=== PATIENT | male | born 1965 | race Two or more races ===

== ENCOUNTER → 2017-07-29 | Outpatient (CLI) | payer OTHER ==
[~2017-07-29] MED LIST: ACID CONTROLLER20 MG PO; ADVIL100 M1; ASA81 MG; COUMADIN2.5 MG PO; COZAAR50 MG; DICLOFENAC SODI50 MG PO; FIORICET TABLET1 TAB PO; HYZAAR 100-121 UDTAB; IBUPROFEN800 MG PO; LEVSIN/SL0.125 MG SL; LOSARTAN POTASS50 MG; ORPH100T PO; PAXIL20 MG PO; PROVENTIL3 ML/2.5 M IH; RESTORIL30 MG; SIMVASTATIN5 MG PO; TENORMIN25 MG PO; XANAX XR1 MG; ZITHROMAX500 MG PO; ZOFRAN8 MG PO; ZYNCOF 20-400120 ML PO
== END | disposition home or self-care (01) ==
LOC: PPHC 08:36
DX: S00.83XD Contusion of other part of head, subsequent encounter (principal); X58.XXXD Exposure to other specified factors, subsequent encounter

== ENCOUNTER → 2017-08-03 | Emergency (ER) | payer OTHER ==
[~2017-08-03] VITALS: Ht 167.6 cm; Wt 99.8 kg
== END | disposition home or self-care (01) ==
LOC: ER 07:20
DX: Z48.02 Encounter for removal of sutures (principal)

== ENCOUNTER 2017-11-22 09:43 | Outpatient (CLI) | payer OTHER | END 2017-11-22 09:44 | disposition home or self-care (01) | LOC: LAB 09:43 | DX: Z83.3 Family history of diabetes mellitus (principal); E78.2 Mixed hyperlipidemia; E78.00 Pure hypercholesterolemia, unspecified; R74.0 Nonspecific elevation of levels of transaminase and lactic acid dehydrogenase [LDH]; D50.8 Other iron deficiency anemias; N39.0 Urinary tract infection, site not specified; Z83.49 Family history of other endocrine, nutritional and metabolic diseases; E55.9 Vitamin D deficiency, unspecified; N40.1 Benign prostatic hyperplasia with lower urinary tract symptoms ==

== ENCOUNTER 2017-11-22 10:25 | Outpatient (CLI) | payer OTHER | END 2017-11-22 10:31 | disposition home or self-care (01) | LOC: RAD 10:25 | DX: M25.522 Pain in left elbow (principal) ==

== ENCOUNTER 2017-12-17 11:47 | Outpatient (CLI) | payer OTHER | END 2017-12-17 16:31 | disposition home or self-care (01) | LOC: TOM 11:47 | DX: M25.551 Pain in right hip (principal); M25.552 Pain in left hip ==

== ENCOUNTER 2018-02-24 22:58 | Emergency (ER) | payer OTHER ==
[~2018-02-24] VITALS: Ht 167.6 cm; Wt 99.8 kg
== END 2018-02-25 01:41 | disposition left against medical advice (07) ==
LOC: ER 22:58
DX: Z53.20 Procedure and treatment not carried out because of patient's decision for unspecified reasons (principal)

== ENCOUNTER 2018-04-20 11:04 | Emergency (ER) | payer OTHER ==
[~2018-04-20] VITALS: Ht 167.6 cm; Wt 99.8 kg
== END 2018-04-20 14:52 | disposition home or self-care (01) ==
LOC: ER 11:04
DX: M12.512 Traumatic arthropathy, left shoulder (principal)

== ENCOUNTER 2018-10-28 18:48 | Emergency (ER) | payer OTHER ==
[~2018-10-28] VITALS: Ht 167.6 cm; Wt 95.3 kg
== END 2018-10-28 22:27 | disposition home or self-care (01) ==
LOC: ER 18:48
DX: M62.830 Muscle spasm of back (principal)

== ENCOUNTER 2018-10-30 10:51 | Outpatient (CLI) | payer OTHER | END 2018-10-30 17:10 | disposition home or self-care (01) | LOC: LAB 10:51 | DX: I10 Essential (primary) hypertension (principal); Z00.00 Encounter for general adult medical examination without abnormal findings; E55.9 Vitamin D deficiency, unspecified; E11.9 Type 2 diabetes mellitus without complications; N42.89 Other specified disorders of prostate ==

== ENCOUNTER 2019-03-02 20:35 | Emergency (ER) | payer OTHER ==
[~2019-03-02] VITALS: Ht 167.6 cm; Wt 99.8 kg
[2019-03-02] MEDS ORDERED: NORFLEX100MG PO (22:52)
[2019-03-02] MEDS ORDERED: NAPROXEN500 MG PO (22:52)
== END 2019-03-02 22:58 | disposition home or self-care (01) ==
LOC: ER 20:35
DX: M54.5 Low back pain (principal)

== ENCOUNTER 2019-04-10 17:59 | Emergency (ER) | payer OTHER ==
[~2019-04-10] VITALS: Ht 167.6 cm; Wt 101.6 kg
[~2019-04-10 17:59] MED LIST changes: +NAPROXEN500 MG PO; +NORFLEX100MG PO
[2019-04-10] MEDS ORDERED: DICLOFENAC SODI75 MG PO (18:37)
== END 2019-04-10 19:16 | disposition home or self-care (01) ==
LOC: ER 17:59
DX: M54.5 Low back pain (principal)

== ENCOUNTER 2020-07-13 09:14 | Outpatient (CLI) | payer OTHER ==
[~2020-07-13 09:14] MED LIST changes: +DICLOFENAC SODI75 MG PO
== END 2020-07-13 09:24 | disposition home or self-care (01) ==
LOC: RAD 09:14
PROVIDERS: ATTEND Orthopaedic Surgery
DX: M16.0 Bilateral primary osteoarthritis of hip (principal); M54.5 Low back pain

== ENCOUNTER 2020-08-09 10:45 | Inpatient (IN) | payer OTHER ==
[~2020-08-09] VITALS: Ht 167.6 cm; Wt 99.3 kg
[2020-08-19] MEDS ORDERED: ELIQUIS2.5 MG PO (07:48)
[2020-08-19] MEDS ORDERED: DUI500 PO (07:48)
[2020-08-19] MEDS ORDERED: PERCOCET 5-3251 EACH PO (07:48)
== END 2020-08-19 15:02 | disposition home or self-care (01) | DRG 470 ==
LOC: SURH 08-16 05:39 → O/R 08-16 05:39 → SURH 08-16 09:15
PROVIDERS: ADMIT Orthopaedic Surgery; ATTEND Orthopaedic Surgery
PROC: 0SR90JZ Replacement of Right Hip Joint with Synthetic Substitute, Open Approach (ICD-10-PCS; principal; 2020-08-16 09:15)
DX: M16.11 Unilateral primary osteoarthritis, right hip (principal); D62 Acute posthemorrhagic anemia; I10 Essential (primary) hypertension

== ENCOUNTER → 2022-03-24 | Emergency (ER) | payer OTHER ==
[~2022-03-24] VITALS: Ht 167.6 cm; Wt 101.6 kg
[~2022-03-24] MED LIST changes: +DUI500 PO; +ECOTRIN81 MG; +ELIQUIS2.5 MG PO; +LASIX20 MG; +LIPITOR20 MG; +PERCOCET 5-3251 EACH PO; +PLAVIX75 MG; +TENORMIN25 MG; +ZESTRIL5 MG
== END | disposition left against medical advice (07) ==
LOC: ER 14:05
DX: Z53.21 Procedure and treatment not carried out due to patient leaving prior to being seen by health care provider (principal)